=== PATIENT | male | born 1990 | race Caucasian/White ===

== ENCOUNTER 2017-01-01 11:56 | Observation (INO) | payer MEDICAID ==
[2017-01-01] VITALS (7 sets, daily range): BP systolic 113–140; BP diastolic 55–74; PULSE 88–101; RESP 14–20; TEMP 98.9–101.4; O2SAT 95–100
[~2017-01-01] VITALS: Ht 182.9 cm; Wt 99.3 kg
--- NOTE | 2017-01-01 12:29 | PD ---
HPI Chief Complaint: Fever Time Seen by Provider: 12:18 Travel History International Travel<30 days: No Contact w/Intl Traveler<30days: No Traveled to known affect area: No History of Present Illness HPI 26-year-old male complains of fever and right testicular pain. Patient states that he started having sharp pain localized to right testicle since yesterday. Patient started having mild headache and fever to 102 this morning. Patient denies any neck pain. Patient denies any coughing congestion. Patient denies any chest pain or shortness of breath. Patient denies abdominal pain. Patient denies any back pain. Patient denies any dysuria or frequency. Patient denies any injury to the groin area. PFSH Past Medical History Medical History: Denies Significant Hx Diminished Hearing: No Tetanus Vaccination: < 5 Years Influenza Vaccination: Yes Past Surgical History Surgical History: No Previous Surgery Social History Alcohol Use: No Tobacco Use: No Substance Use: No Allergies-Medications (Allergen,Severity, Reaction): Coded Allergies: No Known Allergies (Unverified , 01/01/17) Reported Meds & Prescriptions Reported Meds & Active Scripts Active No Active Prescriptions or Reported Medications Review of Systems General / Constitutional: Positive: Fever Eyes: No: Visual changes HENT: No: Headaches Cardiovascular: No: Chest Pain or Discomfort Respiratory: No: Shortness of Breath Gastrointestinal: No: Abdominal Pain Genitourinary: No: Dysuria Musculoskeletal: No: Pain Skin: No Rash Neurologic: No: Weakness Psychiatric: No: Depression Endocrine: No: Polydipsia Hematologic/Lymphatic: No: Easy Bruising Physical Exam Narrative GENERAL: Well-nourished, well-developed patient. SKIN: Focused skin assessment warm/dry. HEAD: Normocephalic. EYES: No scleral icterus. No injection or drainage. NECK: Supple, trachea midline. No JVD or lymphadenopathy. CARDIOVASCULAR: Regular rate and rhythm without murmurs, gallops, or rubs. RESPIRATORY: Breath sounds equal bilaterally. No accessory muscle use. GASTROINTESTINAL: Abdomen soft, non-tender, nondistended. MUSCULOSKELETAL: No cyanosis, or edema. BACK: Nontender without obvious deformity. No CVA tenderness. exam: Right testicle is larger than left testicle. Mild to moderate tenderness on palpation of the testicle. No tenderness on palpation spermatocord. No evidence of hernia noted. The scrotum is nontender and no edema noted. No penile lesion or discharge noted. Data Data Last Documented VS Vital Signs Date Time Temp Pulse Resp B/P (MAP) Pulse Ox O2 Delivery O2 Flow Rate FiO2 01/01/17 13:30 14 01/01/17 13:25 88 118/55 (76) 100 Room Air 01/01/17 12:10 101.4 Orders Orders Complete Blood Count With Diff (01/01/17 12:23) Comprehensive Metabolic Panel (01/01/17 12:23) Urinalysis - C+S If Indicated (01/01/17 12:23) Iv Access Insert/Monitor (01/01/17 12:23) Us Testicles W Doppler (01/01/17 12:23) Acetaminophen (Tylenol) (01/01/17 13:30) Morphine Inj (Morphine Inj) (01/01/17 13:30) Ondansetron Inj (Zofran Inj) (01/01/17 13:30) Levofloxacin 750 Mg Premix Inj (Levaquin (01/01/17 13:45) Sodium Chlor 0.9% 1000 Ml Inj (Ns 1000 M (01/01/17 14:00) Diet Regular Basic (01/01/17 Lunch) Consult Urology (01/01/17 ) Admit Order (Ed Use Only) (01/01/17 14:25) Place In Observation (01/01/17 ) Vital Signs (Adult) Q4H (01/01/17 14:24) Activity Oob Ad Bina (01/01/17 14:24) Diet Regular Basic (01/01/17 Dinner) Sodium Chloride 0.9% Flush (Ns Flush) (01/01/17 14:30) Sodium Chloride 0.9% Flush (Ns Flush) (01/01/17 21:00) Naloxone Inj (Narcan Inj) (01/01/17 14:30) Docusate Sodium-Senna (Criss-Colace) (01/01/17 21:00) Levofloxacin 750 Mg Premix Inj (Levaquin (01/02/17 14:00) Vital Signs (Adult) Q4H (01/01/17 14:26) Activity Oob Ad Bina (01/01/17 14:26) ^ Saline Lock (01/01/17 14:26) Resp Oxygen David C Titrat 1-4 L (01/01/17 ) Notify Dr: Other (01/01/17 14:26) Ondansetron Inj (Zofran Inj) (01/01/17 14:30) Acetaminophen (Tylenol) (01/01/17 14:30) Sodium Chloride 0.9% Flush (Ns Flush) (01/01/17 21:00) Sodium Chloride 0.9% Flush (Ns Flush) (01/01/17 14:30) Labs Laboratory Tests Test 01/01/17 12:35 01/01/17 12:45 White Blood Count 5.3 TH/MM3 Red Blood Count 5.15 MIL/MM3 Hemoglobin 13.7 GM/DL Hematocrit 42.1 % Mean Corpuscular Volume 81.8 FL Mean Corpuscular Hemoglobin 26.6 PG Mean Corpuscular Hemoglobin Concent 32.6 % Red Cell Distribution Width 13.1 % Platelet Count 223 TH/MM3 Mean Platelet Volume 7.8 FL Neutrophils (%) (Auto) 79.5 % Lymphocytes (%) (Auto) 10.1 % Monocytes (%) (Auto) 8.1 % Eosinophils (%) (Auto) 1.5 % Basophils (%) (Auto) 0.8 % Neutrophils # (Auto) 4.3 TH/MM3 Lymphocytes # (Auto) 0.5 TH/MM3 Monocytes # (Auto) 0.4 TH/MM3 Eosinophils # (Auto) 0.1 TH/MM3 Basophils # (Auto) 0.0 TH/MM3 CBC Comment DIFF FINAL Differential Comment Blood Urea Nitrogen 16 MG/DL Creatinine 1.30 MG/DL Random Glucose 89 MG/DL Total Protein 7.8 GM/DL Albumin 4.0 GM/DL Calcium Level 9.0 MG/DL Alkaline Phosphatase 73 U/L Aspartate Amino Transf (AST/SGOT) 18 U/L Alanine Aminotransferase (ALT/SGPT) 16 U/L Total Bilirubin 0.9 MG/DL Sodium Level 137 MEQ/L Potassium Level 4.1 MEQ/L Chloride Level 104 MEQ/L Carbon Dioxide Level 25.6 MEQ/L Anion Gap 7 MEQ/L Estimat Glomerular Filtration Rate 67 ML/MIN Urine Collection Type CLEAN CATCH Urine Color YELLOW Urine Turbidity CLEAR Urine pH 6.0 Urine Specific [place] 1.023 Urine Protein NEG mg/dL Urine Glucose (UA) NEG mg/dL Urine Ketones NEG mg/dL Urine Occult Blood NEG Urine Nitrite NEG Urine Bilirubin NEG Urine Leukocyte Esterase NEG Urine RBC 0-3 /hpf Urine Squamous Epithelial Cells 0-5 /hpf Microscopic Urinalysis Comment CULT NOT INDICATED Urine Collection Time 12:[address] [facility] Medical Decision Making Medical Screen Exam Complete: Yes Emergency Medical Condition: Yes Interpretation(s) Last Impressions Scrotum Ultrasound 01/01/17 1223 Signed Impressions: Service Date/Time: December 12:48 - CONCLUSION: 1. The testicles are intrinsically normal bilaterally. 2. Small cyst in the head of the right epididymis most consistent with a small spermatocele. 3. Multiple right-sided varices. Johnathan Austin MD Differential Diagnosis Differential diagnosis including UTI, prostatitis, orchitis, epididymitis, testicular torsion. Narrative Course 26-year-old male with fever, right testicular pain. Tylenol 651 g by mouth given. Normal saline solution 100 cc an hour. Levaquin 750 mg IV. Spoke with urologist, Dr. Rosa. Advised medical admission with IV antibiotic. Patient is not on isolation. Diagnosis Primary Impression: Orchitis Admitting Information Admitting Physician Requests: Admit Scripts No Active Prescriptions or Reported Meds Robbie Cleary MD Jan 01, 2017 12:29
[2017-01-01 12:48] LABS: AUTOMATED NEUTROPHIL # 4.3 TH/MM3 (1.8-7.7); BASOPHIL % 0.8 % (0.0-2.0); EOSINOPHIL # 0.1 TH/MM3 (0-0.4); EOSINOPHIL % 1.5 % (0.0-4.0); HEMATOCRIT 42.1 % (39.0-51.0); HEMO FLAGS DIFF FINAL; LYMPH % 10.1 % (9.0-44.0); LYMPHOCYTE # 0.5 TH/MM3 (1.0-4.8); MEAN CELL VOLUME 81.8 FL (80.0-100.0); MEAN CORPUSCULAR HEMOGLOBIN 26.6 PG (27.0-34.0); MEAN CORPUSCULAR HGB CONC 32.6 % (32.0-36.0); MONO % 8.1 % (0.0-8.0); NEUT % 79.5 % (16.0-70.0); PLATELET COUNT 223 TH/MM3 (150-450); RED BLOOD COUNT 5.15 MIL/MM3 (4.50-5.90); RED CELL DISTRIBUTION WIDTH 13.1 % (11.6-17.2); WHITE BLOOD COUNT 5.3 TH/MM3 (4.0-11.0)
[2017-01-01 12:55] LABS: CHLORIDE 104 MEQ/L (98-107); POTASSIUM 4.1 MEQ/L (3.5-5.1); SODIUM (NA) 137 MEQ/L (136-145)
[2017-01-01 12:58] LABS: ANION GAP 7 MEQ/L (5-15); BICARBONATE 25.6 MEQ/L (21.0-32.0)
[2017-01-01 12:59] LABS: BLOOD UREA NITROGEN 16 MG/DL (7-18)
[2017-01-01 13:01] LABS: ALT (GPT) 16 U/L (12-78); AST (GOT) 18 U/L (15-37)
[2017-01-01 13:02] LABS: GLOMERULAR FILTRATION RATE 67 ML/MIN (>89)
[2017-01-01 13:02] LABS: BLOOD, URINE NEG (NEG); GLUCOSE,URINE NEG (NEG); KETONE, URINE NEG (NEG); NITRITE,URINE NEG (NEG)
[2017-01-01 13:03] LABS: TOTAL BILIRUBIN ADULT 0.9 MG/DL (0.2-1.0)
[2017-01-01 13:03] LABS: METHOD OF COLLECTION CLEAN CATCH; URINE COLOR YELLOW (YELLW/STRAW)
[2017-01-01 13:04] LABS: ALKALINE PHOSPHATASE 73 U/L (45-117)
[2017-01-01 13:08] LABS: COMMENT (UR) CULT NOT INDICATED; CULTURE IF INDICATED CULT NOT INDICATED; RBC, URINE 0-3 /hpf (0-3); SQUAMOUS EPITHELIAL CELL URINE 0-5 /hpf (0-5)
[2017-01-01] MEDS ORDERED: MORPHINE SULFATE 4 MG/ML INJ IV PUSH ONE (13:30)
[2017-01-01] MEDS ORDERED: ACETAMINOPHEN 325 MG TAB PO ONE (13:30)
[2017-01-01] MEDS ORDERED: ONDANSETRON HCL 4 MG/2 ML VIAL IV PUSH ONE (13:30)
--- NOTE | 2017-01-01 13:31 | RADRPT ---
EXAM DATE/TIME: 01/01/2017 12:48 [facility] COMPARISON: No previous studies available for comparison. INDICATIONS : Right testicle pain. MEDICAL HISTORY : Right testicle pain. Fever. SURGICAL HISTORY : None. ENCOUNTER: Initial ACUITY: 3 days PAIN SCORE: 7/10 LOCATION: Right testicle. MEASUREMENTS: RIGHT TESTICLE: 3.4 x 2.5 x 5.1cm LEFT TESTICLE: 4.2 x 2.5 x 2.7cm FINDINGS: RIGHT TESTICLE: Homogeneous echotexture without intra or extratesticular mass. Blood flow is symmetric and within no rmal limits. No hydrocele. There is a small cystic structure in the epididymis measuring 3 x 2 mm. T here are multiple varices. LEFT TESTICLE: Homogeneous echotexture without intra or extratesticular mass. Blood flow is symmetric and within no rmal limits. No hydrocele or varicocele. Epididymis is within normal limits. SCROTUM: Within normal limits. CONCLUSION: 1. The testicles are intrinsically normal bilaterally. 2. Small cyst in the head of the right epididymis most consistent with a small spermatocele. 3. Multiple right-sided varices. Johnathan Austin MD on January 01, 2017 at 13:28 Board Certified Radiologist. This report was verified electronically.
[2017-01-01] MEDS ORDERED: LEVOFLOXACIN 750 MG PREMIX INJ 150 ML IV ONE (13:45)
[2017-01-01] MEDS: SODIUM CHLOR 0.9% 1000 ML INJ 1,000 ML IV SCH ×2 (13:53→21:35)
[2017-01-01] MEDS ORDERED: ONDANSETRON HCL 4 MG/2 ML VIAL IV PRN (14:30)
[2017-01-01] MEDS ORDERED: SODIUM CHLORIDE 0.9% FLUSH 10 ML FLUSH IVF PRN (14:30)
[2017-01-01] MEDS ORDERED: SODIUM CHLORIDE 0.9% FLUSH 10 ML FLUSH IV FLUSH PRN (14:30)
[2017-01-01] MEDS ORDERED: ACETAMINOPHEN 325 MG TAB PO PRN (14:30)
[2017-01-01] MEDS ORDERED: NALOXONE HCL 0.4 MG/ML AMP IV PRN (14:30)
--- NOTE | 2017-01-01 15:51 | HHI.HP ---
[facility] Primary Care Physician Admission Diagnosis orchitis Diagnoses: (1) Febrile illness Diagnosis: Principal (2) Orchitis Diagnosis: Principal Chief Complaint: Headache, fever, right testicular pain Travel History International Travel<30 Days: No Contact w/Intl Traveler <30 Da: No Traveled to Known Affected Are: No History of Present Illness Written by Jordan Saunders, acting as scribe for Dr. Gonzalez on 01/01/17 at 15: 41. 26 year-old male with no chronic medical illnesses who presented to hospital because of headache, fever, right testicular pain. Patient states that he was in his normal state of health until 2 days ago when he started developing a headache with mild photophobia and mild pain in his right testicle. Patient indicates that her last couple days it progressively got worse so he came to the hospital for evaluation. Patient denies any neck pain, cough, congestion, sore throat, rhinorrhea. He is sexually active without using protection. He does lift weights quite frequently and 2 days ago he did do lifts with heavy weights. And since then his right testicle started having pain which worsened. Patient came to emergency department for evaluation and patient did have a fever 101.4, no leukocytosis. Scrotal ultrasound was performed which showed that the testicles were normal bilaterally. There is a small cyst of the head of the right epididymis most consistent with small spermatocele area multiple right sided varices. Is recommended by the ER physician that the patient be observed in the hospital for further evaluation and management. Review of Systems Eyes: COMPLAINS OF: Photosensitivity Genitourinary: COMPLAINS OF: Testicular Pain Musculoskeletal: DENIES: Joint pain, Neck pain Neurologic: COMPLAINS OF: Headache Except as stated in HPI: all other systems reviewed are Neg Past Family Social History Past Medical History No chronic medical illnesses Past Surgical History No previous surgeries Reported Medications No home medications Allergies: Coded Allergies: No Known Allergies (Unverified , 01/01/17) Family History Reviewed and father is in his 40s from probable cardiac nature. Mother alive with no chronic medical illnesses Social History Patient denies any tobacco, alcohol or illicit drugs Physical Exam Vital Signs Vital Signs Date Time Temp Pulse Resp B/P (MAP) Pulse Ox O2 Delivery O2 Flow Rate FiO2 01/01/17 13:30 14 01/01/17 13:25 88 16 118/55 (76) 100 Room Air 01/01/17 12:10 101.4 100 14 137/68 (91) 98 Room Air 01/01/17 12:00 101.4 101 20 137/68 (91) 99 Physical Exam GENERAL: Well-developed, well-nourished, in no acute distress. alert and orientated HEENT: Head is normocephalic without any lesions or masses noted. Facial features are symmetric. Eyes: Pupils equal round reactive to light. Extraocular muscles are intact. Conjunctivae were clear. Oropharyngeal: Pharynx without any erythema edema. Tongue is midline without deviation. Buccal mucosa is moist without any masses or lesions NECK: Supple without any masses. Trachea midline no deviation. No JVD, no bruits are appreciated CARDIAC: Regular rhythm, regular rate. S1/S2 are heard. No murmurs gallops or rubs. LUNGS: Clear to auscultation bilaterally. No wheeze, rhonchi or rales. No use of accessory muscles on inspiration or expiration. ABDOMEN: Soft, nontender. Nondistended. Bowel sounds heard in all 4 quadrants. No organomegaly or masses. Negative rebound, negative guarding EXTREMITIES: No edema, pulses are equal bilaterally. No cyanosis or clubbing NEUROLOGY: Mood and affect appear appropriate. Cranial nerves II through XII grossly intact. Muscle strength 5/5 in upper and lower extremities bilaterally. Deep tendon reflexes are 2+ in upper and lower extremities bilaterally. GENITOURINARY: Mild enlargement of the right testicle with pain noted at the superior pole of the testicle. Left testicle does have obvious varices Laboratory Laboratory Tests Test 01/01/17 12:35 01/01/17 12:45 White Blood Count 5.3 Red Blood Count 5.15 Hemoglobin 13.7 Hematocrit 42.1 Mean Corpuscular Volume 81.8 Mean Corpuscular Hemoglobin 26.6 Mean Corpuscular Hemoglobin Concent 32.6 Red Cell Distribution Width 13.1 Platelet Count 223 Mean Platelet Volume 7.8 Neutrophils (%) (Auto) 79.5 Lymphocytes (%) (Auto) 10.1 Monocytes (%) (Auto) 8.1 Eosinophils (%) (Auto) 1.5 Basophils (%) (Auto) 0.8 Neutrophils # (Auto) 4.3 Lymphocytes # (Auto) 0.5 Monocytes # (Auto) 0.4 Eosinophils # (Auto) 0.1 Basophils # (Auto) 0.0 CBC Comment DIFF FINAL Differential Comment Blood Urea Nitrogen 16 Creatinine 1.30 Random Glucose 89 Total Protein 7.8 Albumin 4.0 Calcium Level 9.0 Alkaline Phosphatase 73 Aspartate Amino Transf (AST/SGOT) 18 Alanine Aminotransferase (ALT/SGPT) 16 Total Bilirubin 0.9 Sodium Level 137 Potassium Level 4.1 Chloride Level 104 Carbon Dioxide Level 25.6 Anion Gap 7 Estimat Glomerular Filtration Rate 67 Urine Collection Type CLEAN CATCH Urine Color YELLOW Urine Turbidity CLEAR Urine pH 6.0 Urine Specific [place] 1.023 Urine Protein NEG Urine Glucose (UA) NEG Urine Ketones NEG Urine Occult Blood NEG Urine Nitrite NEG Urine Bilirubin NEG Urine Leukocyte Esterase NEG Urine RBC 0-3 Urine Squamous Epithelial Cells 0-5 Microscopic Urinalysis Comment CULT NOT INDICATED Urine Collection Time 12:45 Result Diagram: 01/01/17 1235 01/01/17 1235 Imaging Last Impressions Scrotum Ultrasound 01/01/17 1223 Signed Impressions: Service Date/Time: December 12:48 - CONCLUSION: 1. The testicles are intrinsically normal bilaterally. 2. Small cyst in the head of the right epididymis most consistent with a small spermatocele. 3. Multiple right-sided varices. MD [place] VTE Risk Assessment Jamarii VTE Risk Assessment: No/Low Risk (score <= 1) Caprini Risk Assessment Model Point Value = 1 Point Value = 2 Point Value = 3 Point Value = 5 Age 41-60 Minor surgery BMI > 25 kg/m2 Swollen legs Varicose veins or History of unexplained or recurrent spontaneous Oral contraceptives or hormone replacement Sepsis (< 1 month) Serious lung disease, including pneumonia (< 1 month) Abnormal pulmonary function Acute myocardial infarction Congestive heart failure (< 1 month) History of inflammatory bowel disease Medical patient at bed rest Age 61-74 Arthroscopic surgery Major open surgery (> 45 min) Laparoscopic surgery (> 45 min) Malignancy Confined to bed (> 72 hours) Immobilizing plaster cast Central venous access Age >= 75 History of VTE Family history of VTE Factor V Leiden Prothrombin [id number] Lupus anticoagulant Anticardiolipin antibodies Elevated serum homocysteine Heparin-induced thrombocytopenia Other congenital or acquired thrombophilia Stroke (< 1 month) Elective arthroplasty Hip, pelvis, or leg fracture Acute spinal cord injury (< 1 month) Prophylaxis Regimen Total Risk Factor Score Risk Level Prophylaxis Regimen 0-1 Low Early ambulation 2 Moderate Order ONE of the following: *Sequential Compression Device (SCD) *Heparin 5000 units SQ BID 3-4 Higher Order ONE of the following medications: *Heparin 5000 units SQ TID *Enoxaparin/Lovenox 40 mg SQ daily (WT < 150 kg, CrCl > 30 mL/min) *Enoxaparin/Lovenox 30 mg SQ daily (WT < 150 kg, CrCl > 10-29 mL/min) *Enoxaparin/Lovenox 30 mg SQ BID (WT < 150 kg, CrCl > 30 mL/min) AND/OR *Sequential Compression Device (SCD) 5 or more Highest Order ONE of the following medications: *Heparin 5000 units SQ TID (Preferred with Epidurals) *Enoxaparin/Lovenox 40 mg SQ daily (WT < 150 kg, CrCl > 30 mL/min) *Enoxaparin/Lovenox 30 mg SQ daily (WT < 150 kg, CrCl > 10-29 mL/min) *Enoxaparin/Lovenox 30 mg SQ BID (WT < 150 kg, CrCl > 30 mL/min) AND *Sequential Compression Device (SCD) Assessment and Plan Problem List: (1) Febrile illness ICD Code: R50.9 - Fever, unspecified Plan: 26-year-old male who rather healthy presented to the hospital with febrile illness and right testicular pain. Fever could be secondary to viral etiology versus orchitis. Patient did have associated cephalgia, however he denies any neck pain, patient is without any nuchal rigidity, or neck stiffness. Patient will be observed in the hospital and monitored for infection. If patient remains afebrile, likely patient will be discharged home tomorrow. (2) Orchitis ICD Code: N45.2 - Orchitis Status: Acute Plan: Etiology of orchitis/epididymitis unclear but could be related to patient lifting weights and doing lower extremity workout. However he is sexually active without any protection. We'll need to obtain GC culture, patient continued on Levaquin. Patient would benefit from scrotal elevation and ice administration. Assessment and Plan DVT prevention: Low risk, early ambulation Discussed Condition With ER physician, nursing staff, patient, family at bedside Medical Decision Making Impression and Plan This note was transcribed by arnaldo Saunders. I, Dr. Tonja Gonzalez personally performed the history, physical exam, and medical decision making; and confirmed the accuracy of the information in the transcribed note. Patient care plan discussed with Dr. Rosa urology, follow-up CT abdomen pelvis Authenticated by Dr. Tonja Gonzalez on 01/01/17 at 16:00. Jordan Saunders Jan 01, 2017 15:50 Tonja Gonzalez MD Jan 01, 2017 16:22
[2017-01-01] MEDS ORDERED: IOHEXOL 350 MG/ML 10 ML VIAL (for RAD DIAG) IVCONTRAST ONE (16:00)
--- NOTE | 2017-01-01 16:17 | RADRPT ---
EXAM DATE/TIME: 01/01/2017 15:58 [facility] COMPARISON: No previous studies available for comparison. INDICATIONS : Fever. Right testicular pain. Right testicular varicocele. Evaluate for renal mass. IV CONTRAST: 85 cc Omnipaque 350 (iohexol) IV ORAL CONTRAST: No oral contrast ingested. RADIATION DOSE: 11.83 CTDIvol (mGy) MEDICAL HISTORY : None SURGICAL HISTORY : None. ENCOUNTER: Initial ACUITY: 1 day PAIN SCALE: 4/10 LOCATION: Right lower quadrant TECHNIQUE: Volumetric scanning of the abdomen and pelvis was performed. Using automated exposure control and ad justment of the mA and/or kV according to patient size, radiation dose was kept as low as reasonably achievable to obtain optimal diagnostic quality images. DICOM format image data is available electro nically for review and comparison. FINDINGS: LOWER LUNGS: The visualized lower lungs are clear. LIVER: Homogeneous density without lesion. There is no dilation of the biliary tree. No calcified gallston es. SPLEEN: Normal size without lesion. PANCREAS: Within normal limits. KIDNEYS: Normal in size and shape. There is no mass, stone or hydronephrosis. ADRENAL GLANDS: Within normal limits. VASCULAR: There is no aortic aneurysm. BOWEL/MESENTERY: No oral contrast was given limiting the sensitivity of the exam. There is a normal appendix. The stom ach, small bowel, and colon demonstrate no acute abnormality. There is no free intraperitoneal air o r fluid. ABDOMINAL WALL: Within normal limits. RETROPERITONEUM: There is no lymphadenopathy. BLADDER: No wall thickening or mass. REPRODUCTIVE: Within normal limits. INGUINAL: There is no lymphadenopathy or hernia. MUSCULOSKELETAL: Within normal limits for patient age. CONCLUSION: 1. Unremarkable bowel gas pattern. 2. The kidneys are unremarkable in appearance. Johnathan Austin MD on January 01, 2017 at 16:13 Board Certified Radiologist. This report was verified electronically.
[2017-01-01] MEDS ORDERED: traMADol HCL 50 MG TAB PO ONE (20:00)
[2017-01-01] MEDS: DOCUSATE SODIUM 50 MG/SENNA 8.6 MG TAB PO SCH (21:00)
[2017-01-01] MEDS: SODIUM CHLORIDE 0.9% FLUSH 10 ML FLUSH IV FLUSH SCH ×2 (21:00→21:34)
--- NOTE | 2017-01-01 21:40 | MB ---
cc: OHRAMSES JASIEL DATE OF CONSULTATION 01/01/17 HISTORY OF PRESENT ILLNESS This is a pleasant 26-year-old male who presents with four-day history of a headache with right-sided testicular pain which began yesterday and a fever to 102. He denies any trauma to his testicle. Denies any nausea or vomiting. Denies any lower abdominal pain. Ultrasound in the emergency room demonstrated right-sided testicular varices without evidence of epididymo-orchitis or torsion. He does state that he has had the headache for four days and does have some photophobia associated with it. The patient is known to weight lift a lot, particularly doing weights routinely and lifted two days ago. PAST MEDICAL HISTORY/PAST SURGICAL HISTORY He denies any significant past medical history. Denies any past surgical history SOCIAL HISTORY Denies smoking, drinking or using drugs. FAMILY HISTORY Denies any malignancies. REVIEW OF SYSTEMS Right-side testicular pain associated with fever, some photophobia is noted. Denies nausea, vomiting, abdominal pain, gait disturbances, chest pain, shortness of breath, bleeding disorders, skin lesions. Denies any depression. The remaining review of systems were reviewed and are negative. PHYSICAL EXAMINATION VITAL SIGNS: His present vital signs in the emergency room temperature is 101.4, heart rate is 100, respiratory rate is 14, BP is 137/68. Room air 98%. GENERAL: A well-developed, well-nourished 26-year-old male in no acute distress. HEENT: Normocephalic, atraumatic. Pupils equal round react to light. Extraocular movements are intact. NECK: Supple HEART: Regular rate and rhythm. LUNGS: Clear. ABDOMEN: Soft, nontender, nondistended : Normal cremasteric bilaterally. There is no evidence of any testicular or scrotal erythema present. Right-sided varices are noted on exam. No left-sided varicocele is noted. EXTREMITIES: No cyanosis, clubbing or edema. LABORATORY DATA White count 5.3, hemoglobin 13.7, hematocrit 42.1, platelet count of 223, neutrophils are high at 79.5. Sodium is 137, potassium 4.1, chloride 104, CO2 25.6, BUN of 16, creatinine 1.3, glucose of 89. Urinalysis is negative. IMAGING STUDIES Again scrotal ultrasound shows no evidence of any torsion, small cyst at the head of the right epididymis with multiple right-sided varices. The testicles are intrinsically ___ bilaterally. ASSESSMENT A 26-year-old male admitted with fever with headache and right-sided testicular pain with varices. 1. Recommend CT scan and pelvis with contrast to make sure there is no abdominal masses given the right sided varicoceles. 2. Check cultures and continue with IV fluids and IV antibiotics. We will continue to follow with you. Thank you for the consult and allowing me to participate in the care of this patient. Ramses CHOU /3:43 PM /9:21 PM
[2017-01-01 22:08] LABS: CHLAMYDIA PCR NOT DETECTED (NOT DETECT); NEISSERIA PCR NOT DETECTED (NOT DETECT)
[2017-01-02] VITALS: BP 105/59; PULSE 70; RESP 16; TEMP 98.5; O2SAT 99
[2017-01-02 04:00] VITALS: TEMP 98.3
[2017-01-02 08:00] VITALS: BP 116/75; PULSE 68; RESP 20; TEMP 96.4; O2SAT 100
[2017-01-02] MEDS: SODIUM CHLORIDE 0.9% FLUSH 10 ML FLUSH IV FLUSH SCH ×2 (09:00→09:06)
[2017-01-02] MEDS: DOCUSATE SODIUM 50 MG/SENNA 8.6 MG TAB PO SCH (09:00)
[2017-01-02] MEDS: SODIUM CHLOR 0.9% 1000 ML INJ 1,000 ML IV SCH (09:06)
[2017-01-02 11:51] VITALS: BP 137/74; PULSE 70; RESP 20; TEMP 98.3; O2SAT 98
--- NOTE | 2017-01-02 13:21 | HHI.DCPOC ---
Discharge Care Plan Diagnosis: (1) Orchitis Goals to Promote Your Health * To prevent worsening of your condition and complications * To maintain your health at the optimal level Directions to Meet Your Goals Take your medications as prescribed Follow your dietary instruction Follow activity as directed Keep your appointments as scheduled Take your immunizations and boosters as scheduled If your symptoms worsen call your PCP, if no PCP go to Urgent Care Center or Emergency Room Smoking is Dangerous to Your Health. Avoid second hand smoke Call the 24-hour hour crisis hotline for domestic abuse at Tonja Gonzalez MD Jan 02, 2017 13:21
--- NOTE | 2017-01-02 13:25 | HHI.PR ---
Subjective Remarks Patient seen and evaluated today. Pain better. Low-grade temperature overnight. Ambulatory without difficulty CT abdomen pelvis unremarkable Discharge plans discussed with patient, significant other and with urology. Objective Vitals Vital Signs Date Time Temp Pulse Resp B/P (MAP) Pulse Ox O2 Delivery O2 Flow Rate FiO2 01/02/17 11:51 98.3 70 20 137/74 (95) 98 01/02/17 08:00 96.4 68 20 116/75 (89) 100 01/02/17 04:00 98.3 01/02/17 00:00 98.5 70 16 105/59 (74) 99 01/01/17 20:00 100.8 88 18 113/55 (74) 98 01/01/17 19:55 95 21 01/01/17 17:15 99.0 91 20 140/74 (96) 100 01/01/17 16:55 01/01/17 16:45 98.9 90 18 132/62 (85) 100 Room Air 01/01/17 13:30 14 01/01/17 13:25 88 16 118/55 (76) 100 Room Air I/O 01/01/17 01/01/17 01/01/17 01/02/17 01/02/17 01/02/17 06:59 14:59 22:59 06:59 14:59 22:59 Intake Total 150 ml 1407 ml Balance 150 ml 1407 ml Intake Oral 480 ml IV Total 150 ml 927 ml # Voids 3 # Bowel Movements 1 Result Diagram: 01/01/17 1235 01/01/17 1235 Imaging Last Impressions Abdomen/Pelvis CT 01/01/17 1539 Signed Impressions: Service Date/Time: December 15:58 - CONCLUSION: 1. Unremarkable bowel gas pattern. 2. The kidneys are unremarkable in appearance. Johnathan Austin MD Scrotum Ultrasound 01/01/17 1223 Signed Impressions: Service Date/Time: December 12:48 - CONCLUSION: 1. The testicles are intrinsically normal bilaterally. 2. Small cyst in the head of the right epididymis most consistent with a small spermatocele. 3. Multiple right-sided varices. Johnathan Austin MD A/P Problem List: (1) Febrile illness ICD Code: R50.9 - Fever, unspecified Plan: resolved may be orchitis (2) Orchitis ICD Code: N45.2 - Orchitis Status: Acute Plan: labs negative outpatient follow up with PO Tonja Coe MD Jan 02, 2017 13:25
[2017-01-02] MEDS ORDERED: TRAM50TA PO (13:27)
[2017-01-02] MEDS ORDERED: LEVO500T8 PO (13:27)
[2017-01-02] MEDS ORDERED: LEVOFLOXACIN 750 MG PREMIX INJ 150 ML IV SCH (14:00)
== END 2017-01-02 13:45 | disposition home or self-care (01) ==
LOC: PHED 11:56 → PHEDA 14:27 → INTOOBSV 14:27 → PH3B 17:00
PROVIDERS: ADMIT Hospitalist; ATTEND Hospitalist
DX: N45.3 Epididymo-orchitis (principal); R51 Headache; N50.811 Right testicular pain
CPT/HCPCS: 74177; 76870; 80053; 81001; 85025; 87040; 87491; 87591; 87804; 93975; 96361; 96365; 96366; 96375; 99285; G0378; J1956; J2270; J2405; J7030; Q9967